=== PATIENT | female | born 1975 | race Caucasian/White ===

== ENCOUNTER 2019-04-05 18:41 | Emergency (ER) | payer MEDICARE, OTHER ==
[2019-04-05] MEDS ORDERED: Ketorolac 60 MG/2 ML SDV IM ONE (19:11)
--- NOTE | 2019-04-05 19:18 | EDM.PDOC ---
ED HPI GENERAL MEDICAL PROBLEM - General Chief Complaint: Respiratory Problem Stated Complaint: COUGHING,VOMITTING Time Seen by Provider: 04/05/19 19:01 Source of Information: Reports: Patient History Limitations: Reports: No Limitations - History of Present Illness INITIAL COMMENTS - FREE TEXT/NARRATIVE: Presents reporting a two-week history of cough. Minor shortness of breath and sore throat but the cough has been intense. She has tried some [id number] cough syrups but none have been efficacious. The last 2-3 days she has been vomiting and today had diarrhea all day. No fever, ear fullness, facial fullness , abdominal pain or dysuria. Does not smoke. Did have a flu shot. - Related Data Allergies Allergy/AdvReac Type Severity Reaction Status Date / Time carbamazepine [From Tegretol] Allergy Rash Verified 04/05/19 18:54 Home Meds: Home Meds Benzonatate [Tessalon Perle] 1 cap PO Q8HR PRN #20 capsule 04/05/19 [Rx] Cariprazine Hydrochloride [Vraylar] 1.5 mg PO 04/05/19 [History] Codeine Phosphate/Guaifenesin [Guaifen-Codeine 100-10 mg/5 ml] 10 ml PO Q6HR PRN #240 liquid 04/05/19 [Rx] Diclofenac Sodium [Voltaren] 75 mg PO BIDMEALS #20 tab.ec 04/05/19 [Rx] Escitalopram [Lexapro] 20 mg PO DAILY 04/05/19 [History] Mecobalamin [B-12] injection INJECT WEEKLY 04/05/19 [History] SUMAtriptan [Imitrex] 50 mg PO ASDIRECTED PRN 04/05/19 [History] Topiramate [Topamax] 100 mg PO DAILY 04/05/19 [History] Past Medical History Other Cardiovascular History: states has a leaky valve Psychiatric History: Reports: OCD - Infectious Disease History Infectious Disease History: Reports: Chicken Pox Social & Family History - Family History Family Medical History: Noncontributory - Tobacco Use Smoking Status *Q: Never Smoker - Caffeine Use Caffeine Use: Reports: None - Recreational Drug Use Recreational Drug Use: No ED ROS GENERAL - Review of Systems Review Of Systems: Comprehensive ROS is negative, except as noted in HPI. ED EXAM, GENERAL - Physical Exam Exam: See Below Exam Limited By: No Limitations General Appearance: Alert, No Apparent Distress Ears: Normal External Exam, Normal TMs Nose: Normal Inspection Throat/Mouth: Normal Inspection, Normal Oropharynx Head: Atraumatic, Normocephalic Neck: Normal Inspection. No: Lymphadenopathy (L), Lymphadenopathy (R) Respiratory/Chest: No Respiratory Distress, Lungs Clear, Normal Breath Sounds Cardiovascular: Normal Peripheral Pulses, Regular Rate, Rhythm, No Murmur GI/Abdominal: Soft, Non-Tender, No Distention Back Exam: Normal Inspection Extremities: Normal Inspection Neurological: Alert, Oriented Psychiatric: Normal Affect, Normal Mood Skin Exam: Warm, Dry, Intact, Normal Color, No Rash Lymphatic: No Adenopathy Course - Vital Signs Last Recorded V/S: Last Vital Signs Temp 35.9 C 04/05/19 18:58 Pulse 87 04/05/19 18:58 Resp 17 04/05/19 18:58 BP 110/55 L 04/05/19 18:58 Pulse Ox 98 04/05/19 18:58 - Orders/Labs/Meds Labs: Laboratory Tests 04/05/19 04/05/19 Range/Units 19:35 19:35 WBC 7.53 (4.0-11.0) K/uL RBC 4.17 L (4.30-5.90) M/uL Hgb 12.5 (12.0-16.0) g/dL Hct 39.6 (36.0-46.0) % MCV 95.0 (80.0-98.0) fL MCH 30.0 (27.0-32.0) pg MCHC 31.6 (31.0-37.0) g/dL RDW Std Deviation 49.1 (28.0-62.0) fl RDW Coeff of Yan 14 (11.0-15.0) % Plt Count 271 (150-400) K/uL MPV 10.50 (7.40-12.00) fL Neut % (Auto) 61.7 (48.0-80.0) % Lymph % (Auto) 26.7 (16.0-40.0) % Nicholas % (Auto) 6.2 (0.0-15.0) % Eos % (Auto) 5.0 (0.0-7.0) % Baso % (Auto) 0.4 (0.0-1.5) % Neut # (Auto) 4.6 (1.4-5.7) K/uL Lymph # (Auto) 2.0 (0.6-2.4) K/uL Nicholas # (Auto) 0.5 (0.0-0.8) K/uL Eos # (Auto) 0.4 (0.0-0.7) K/uL Baso # (Auto) 0.0 (0.0-0.1) K/uL Nucleated RBC % 0.0 /100WBC Nucleated RBCs # 0 K/uL Sodium 140 (136-145) mmol/L Potassium 3.8 (3.5-5.1) mmol/L Chloride 107 (98-107) mmol/L Carbon Dioxide 24.7 (21.0-32.0) mmol/L BUN 10 (7.0-18.0) mg/dL Creatinine 0.7 (0.6-1.0) mg/dL Est Cr Clr Drug Dosing TNP Estimated GFR (MDRD) > 60.0 ml/min Glucose 109 H (74-106) mg/dL Calcium 8.3 L (8.5-10.1) mg/dL Total Bilirubin 0.1 L (0.2-1.0) mg/dL AST 21 (15-37) IU/L ALT 29 (14-63) IU/L Alkaline Phosphatase 55 (46-116) U/L Total Protein 7.2 (6.4-8.2) g/dL Albumin 3.3 L (3.4-5.0) g/dL Globulin 3.9 (2.6-4.0) g/dL Albumin/Globulin Ratio 0.9 (0.9-1.6) Meds: Medications Discontinued Medications Generic Name Dose Route Start Last Admin Trade Name Freq PRN Reason Stop Dose Admin Sodium Chloride 1,000 mls @ 999 mls/hr 04/05/19 19:12 04/05/19 19:42 Normal Saline IV 04/05/19 20:12 999 mls/hr STAT ONE Administration Ketorolac Tromethamine 60 mg 04/05/19 19:11 Toradol IM 04/05/19 19:12 ONETIME ONE Ketorolac Tromethamine 30 mg 04/05/19 19:12 04/05/19 19:41 Toradol IVPUSH 04/05/19 19:13 30 mg ONETIME ONE Administration Departure - Departure Time of Disposition: 20:32 Disposition: Home, Self-Care 01 Condition: Good Clinical Impression: Bronchitis - Discharge Information Prescriptions: Codeine Phosphate/Guaifenesin [Guaifen-Codeine 100-10 mg/5 ml] 10 ml PO Q6HR PRN #240 liquid PRN Reason: Cough Benzonatate [Tessalon Perle] 1 cap PO Q8HR PRN #20 capsule PRN Reason: Cough Diclofenac Sodium [Voltaren] 75 mg PO BIDMEALS #20 tab.ec Referrals: Brian Lu MD [Primary Care Provider] - Forms: ED Department Discharge Additional Instructions: The following information is given to patients seen in the emergency department who are being discharged to home. This information is to outline your options for follow-up care. We provide all patients seen in our emergency department with a follow-up referral. The need for follow-up, as well as the timing and circumstances, are variable depending upon the specifics of your emergency department visit. If you don't have a primary care physician on staff, we will provide you with a referral. We always advise you to contact your personal physician following an emergency department visit to inform them of the circumstance of the visit and for follow-up with them and/or the need for any referrals to a consulting specialist. The emergency department will also refer you to a specialist when appropriate. This referral assures that you have the opportunity for follow-up care with a specialist. All of these measure are taken in an effort to provide you with optimal care, which includes your follow-up. Under all circumstances we always encourage you to contact your private physician who remains a resource for coordinating your care. When calling for follow-up care, please make the office aware that this follow-up is from your recent emergency room visit. If for any reason you are refused follow-up, please contact the [facility] Emergency Department at and asked to speak to the emergency department charge nurse. 1. Cough syrup every 6 hours as needed. No driving or operating machinery 2. Tessalon pearles every 8 hours 1-2 as needed for cough 3. Diclofenac twice daily next seven days. 4. Follow up in primary care. Sepsis Event Note - Evaluation Sepsis Screening Result: No Definite Risk - Focused Exam Vital Signs: Vital Signs Temp Pulse Resp BP Pulse Ox 04/05/19 18:58 35.9 C 87 17 110/55 L 98 Date Exam was Performed: 04/05/19 Time Exam was Performed: 20:32
[2019-04-05] MEDS: Ketorolac 30 MG/ML SDV IVPUSH ONE (19:41)
[2019-04-05] MEDS: Sodium Chloride 0.9% 1,000 ML IV ONE (19:42)
[2019-04-05 20:13] LABS: BLOOD UREA NITROGEN,BUN 10 mg/dL (7.0-18.0); CARBON DIOXIDE,CO2 24.7 mmol/L (21.0-32.0); CHLORIDE,CL 107 mmol/L (98-107); GLUCOSE RANDOM 109 mg/dL (74-106); POTASSIUM,K 3.8 mmol/L (3.5-5.1); SODIUM,NA 140 mmol/L (136-145)
== END 2019-04-05 21:01 | disposition home or self-care (01) ==
LOC: MW.ED 18:41
DX: J40 Bronchitis, not specified as acute or chronic (principal); Z88.8 Allergy status to other drugs, medicaments and biological substances; Z79.899 Other long term (current) drug therapy
CPT/HCPCS: 36415; 80053; 85025; 96361; 96374; 99284; J1885; J7030; 99283

== ENCOUNTER 2019-04-14 15:14 | Emergency (ER) | payer MEDICARE, OTHER ==
--- NOTE | 2019-04-14 16:37 | CR ---
Indication: Cough. Technique: PA and lateral views the chest. Comparison: None Findings: The heart is normal in size. The lungs are clear. No infiltrate, pleural effusion, or pneumothorax is identified. Impression: No acute cardiopulmonary process. Dictated by Gi Hsu MD @ Apr 14 2019 4:35PM Signed by Dr. Gi Hsu @ Apr 14 2019 4:35PM
[2019-04-14 17:13] LABS: BLOOD UREA NITROGEN,BUN 18 mg/dL (7.0-18.0); CARBON DIOXIDE,CO2 24.5 mmol/L (21.0-32.0); CHLORIDE,CL 106 mmol/L (98-107); GLUCOSE RANDOM 99 mg/dL (74-106); POTASSIUM,K 4.3 mmol/L (3.5-5.1); SODIUM,NA 139 mmol/L (136-145)
[2019-04-14] MEDS ORDERED: Aspirin 81 MG Tab.Chew PO ONE (17:32)
[2019-04-14] MEDS ORDERED: Sodium Chloride 0.9% 10 ML Syringe FLUSH PRN (18:07)
[2019-04-14] MEDS ORDERED: Sodium Chloride 0.9% 2.5 ML Syringe FLUSH PRN (18:07)
--- NOTE | 2019-04-14 18:21 | EDM.PDOC ---
ED HPI GENERAL MEDICAL PROBLEM - General Chief Complaint: Chest Pain Stated Complaint: CHEST DISCOMFORT Time Seen by Provider: 04/14/19 17:20 Source of Information: Reports: Patient, Family - History of Present Illness INITIAL COMMENTS - FREE TEXT/NARRATIVE: Patient is 43-year-old female with past medical history of morbid obesity and chest pain of unknown etiology. Patient reports having chest pain which is chronic but acutely worsened today. Patient states feels like a pressure on her chest. Patient states it worse with deep breaths. Patient reports recent visit for bronchitis. However the symptoms seems to be new and different bronchitis symptoms. Patient reports associated shortness of breath but denies lightheadedness, nausea, vomiting, diaphoresis. Patient had recent cardiac work -up in [place] where she is from with cardiac catheterization but did not have any findings or any intervention done at that time. Addition, she also had stress test which were negative In addition to that documented in the HPI above, the additional ROS was obtained : Constitutional: Denies fevers or chills Eyes: Denies vision changes ENMT: Denies sore throat CV: Per HPI Resp: Per HPI GI: Denies vomiting or diarrhea : Denies painful urination MSK: Denies recent trauma Skin: Denies new rashes Neuro: Denies new numbness or tingling or weakness Endocrine: Denies unexpected weight loss Heme: Denies bleeding disorders I have reviewed the triage vital signs Const: Well nourished, well developed, appears stated age Eyes: PERRL, no conjunctival injection HENT: NCAT, Neck supple without meningismus CV: RRR, Warm, well-perfused extremities RESP: CTAB, Unlabored respiratory effort GI: soft, non-tender, non-distended, no masses MSK: No gross deformities appreciated Skin: Warm, dry. No rashes Neuro: Alert, purchase price analyst II-XII grossly intact. Sensation and motor function of extremities grossly intact. Psych: Appropriate mood and affect chest Pain Score (Numeric/FACES): 10 - Related Data Allergies Allergy/AdvReac Type Severity Reaction Status Date / Time carbamazepine [From Tegretol] Allergy Rash Verified 04/14/19 15:22 Home Meds: Home Meds Benzonatate [Tessalon Perle] 1 cap PO Q8HR PRN #20 capsule 04/05/19 [Rx] Cariprazine Hydrochloride [Vraylar] 1.5 mg PO ASDIRECTED 04/05/19 [History] Codeine Phosphate/Guaifenesin [Guaifen-Codeine 100-10 mg/5 ml] 10 ml PO Q6HR PRN #240 liquid 04/05/19 [Rx] Diclofenac Sodium [Voltaren] 75 mg PO BIDMEALS #20 tab.ec 04/05/19 [Rx] Escitalopram [Lexapro] 20 mg PO DAILY 04/05/19 [History] Mecobalamin [B-12] 1,000 injection INJECT WEEKLY 04/05/19 [History] SUMAtriptan [Imitrex] 50 mg PO ASDIRECTED PRN 04/05/19 [History] Topiramate [Topamax] 100 mg PO DAILY 04/05/19 [History] Past Medical History Other Cardiovascular History: states has a leaky valve Psychiatric History: Reports: OCD - Infectious Disease History Infectious Disease History: Reports: None Social & Family History - Family History Family Medical History: Noncontributory - Tobacco Use Smoking Status *Q: Never Smoker Second Hand Smoke Exposure: No - Caffeine Use Caffeine Use: Reports: None - Recreational Drug Use Recreational Drug Use: No ED ROS GENERAL - Review of Systems Review Of Systems: See Below ED EXAM, GENERAL - Physical Exam Exam: See Below Course - Vital Signs Last Recorded V/S: Last Vital Signs Temp 36.3 C 04/14/19 15:23 Pulse 78 04/14/19 18:46 Resp 18 04/14/19 18:46 BP 117/60 04/14/19 18:46 Pulse Ox 97 04/14/19 18:46 - Orders/Labs/Meds Orders: Active Orders 24 hr Category Date Time Status EKG Documentation Completion [RC] STAT Care 04/14/19 15:59 Active HCG QUALITATIVE,URINE [URCHEM] Stat Lab 04/14/19 16:05 Ordered UA RFX MIHAI AND CULT IF INDIC [URIN] Stat Lab 04/14/19 16:05 Ordered Sodium Chloride 0.9% [Saline Flush] Med 04/14/19 18:07 Active 10 ml FLUSH ASDIRECTED PRN Sodium Chloride 0.9% [Saline Flush] Med 04/14/19 18:07 Active 2.5 ml FLUSH ASDIRECTED PRN Saline Lock Insert [OM.PC] Stat Oth 04/14/19 18:07 Ordered Medication Orders Sodium Chloride (Saline Flush) 10 ml FLUSH ASDIRECTED PRN PRN Reason: Keep Vein Open Sodium Chloride (Saline Flush) 2.5 ml FLUSH ASDIRECTED PRN PRN Reason: Keep Vein Open Labs: Laboratory Tests 04/14/19 04/14/19 04/14/19 Range/Units 16:37 16:37 16:37 WBC 10.71 (4.0-11.0) K/uL RBC 4.20 L (4.30-5.90) M/uL Hgb 12.7 (12.0-16.0) g/dL Hct 39.5 (36.0-46.0) % MCV 94.0 (80.0-98.0) fL MCH 30.2 (27.0-32.0) pg MCHC 32.2 (31.0-37.0) g/dL RDW Std Deviation 48.2 (28.0-62.0) fl RDW Coeff of Yan 14 (11.0-15.0) % Plt Count 282 (150-400) K/uL MPV 10.70 (7.40-12.00) fL Neut % (Auto) 68.0 (48.0-80.0) % Lymph % (Auto) 21.5 (16.0-40.0) % Cheshire % (Auto) 6.2 (0.0-15.0) % Eos % (Auto) 3.9 (0.0-7.0) % Baso % (Auto) 0.4 (0.0-1.5) % Neut # (Auto) 7.3 H (1.4-5.7) K/uL Lymph # (Auto) 2.3 (0.6-2.4) K/uL [place] # (Auto) 0.7 (0.0-0.8) K/uL Eos # (Auto) 0.4 (0.0-0.7) K/uL Baso # (Auto) 0.0 (0.0-0.1) K/uL Nucleated RBC % 0.0 /100WBC Nucleated RBCs # 0 K/uL D-Dimer, Quantitative 0.52 H (0.0-0.50) mg/L FEU Sodium 139 (136-145) mmol/L Potassium 4.3 (3.5-5.1) mmol/L Chloride 106 (98-107) mmol/L Carbon Dioxide 24.5 (21.0-32.0) mmol/L BUN 18 (7.0-18.0) mg/dL Creatinine 0.6 (0.6-1.0) mg/dL Est Cr Clr Drug Dosing 95.62 mL/min Estimated GFR (MDRD) > 60.0 ml/min Glucose 99 (74-106) mg/dL Calcium 8.6 (8.5-10.1) mg/dL Total Bilirubin 0.1 L (0.2-1.0) mg/dL AST 18 (15-37) IU/L ALT 27 (14-63) IU/L Alkaline Phosphatase 55 (46-116) U/L Troponin I < 0.050 (0.000-0.056) ng/mL Total Protein 7.0 (6.4-8.2) g/dL Albumin 3.3 L (3.4-5.0) g/dL Globulin 3.7 (2.6-4.0) g/dL Albumin/Globulin Ratio 0.9 (0.9-1.6) Meds: Medications Generic Name Dose Route Start Last Admin Trade Name Freq PRN Reason Stop Dose Admin Sodium Chloride 10 ml 04/14/19 18:07 Saline Flush FLUSH ASDIRECTED PRN Keep Vein Open Sodium Chloride 2.5 ml 04/14/19 18:07 Saline Flush FLUSH ASDIRECTED PRN Keep Vein Open Discontinued Medications Generic Name Dose Route Start Last Admin Trade Name Freq PRN Reason Stop Dose Admin Aspirin 324 mg 04/14/19 17:32 04/14/19 17:41 Aspirin PO 04/14/19 17:33 324 mg ONETIME ONE Administration Iopamidol 60 ml 04/14/19 18:41 04/14/19 18:41 Isovue Multipack-370 (76%) IVPUSH 04/14/19 18:42 60 ml ONETIME STA Administration Departure - Departure Time of Disposition: 19:21 Disposition: Home, Self-Care 01 Condition: Good Clinical Impression: Atypical chest pain Instructions: Nonspecific Chest Pain, [id number] Referrals: PCP,Not In Area [Primary Care Provider] - Forms: ED Department Discharge Care Plan Goals: The following information is given to patients seen in the emergency department who are being discharged to home. This information is to outline your options for follow-up care. We provide all patients seen in our emergency department with a follow-up referral. The need for follow-up, as well as the timing and circumstances, are variable depending upon the specifics of your emergency department visit. If you don't have a primary care physician on staff, we will provide you with a referral. We always advise you to contact your personal physician following an emergency department visit to inform them of the circumstance of the visit and for follow-up with them and/or the need for any referrals to a consulting specialist. The emergency department will also refer you to a specialist when appropriate. This referral assures that you have the opportunity for follow-up care with a specialist. All of these measure are taken in an effort to provide you with optimal care, which includes your follow-up. Under all circumstances we always encourage you to contact your private physician who remains a resource for coordinating your care. When calling for follow-up care, please make the office aware that this follow-up is from your recent emergency room visit. If for any reason you are refused follow-up, please contact the [facility] Emergency Department at and asked to speak to the emergency department charge nurse. [facility] [address] [place] [id number] [place] [address] Please establish care with a local PCP or followup with your PCP Sepsis Event Note - Evaluation Sepsis Screening Result: No Definite Risk - Focused Exam Vital Signs: Vital Signs Temp Pulse Resp BP Pulse Ox 04/14/19 18:46 78 18 117/60 97 04/14/19 15:23 36.3 C 78 16 124/70 96 Date Exam was Performed: 04/14/19 Time Exam was Performed: 19:21 - My Orders Last 24 Hours: My Active Orders 04/14/19 15:59 EKG Documentation Completion [RC] STAT 04/14/19 16:05 HCG QUALITATIVE,URINE [URCHEM] Stat UA RFX MIHAI AND CULT IF INDIC [URIN] Stat 04/14/19 18:07 Sodium Chloride 0.9% [Saline Flush] 10 ml FLUSH ASDIRECTED PRN Sodium Chloride 0.9% [Saline Flush] 2.5 ml FLUSH ASDIRECTED PRN Saline Lock Insert [OM.PC] Stat - Assessment/Plan Last 24 Hours: My Active Orders 04/14/19 15:59 EKG Documentation Completion [RC] STAT 04/14/19 16:05 HCG QUALITATIVE,URINE [URCHEM] Stat UA RFX MIHAI AND CULT IF INDIC [URIN] Stat 04/14/19 18:07 Sodium Chloride 0.9% [Saline Flush] 10 ml FLUSH ASDIRECTED PRN Sodium Chloride 0.9% [Saline Flush] 2.5 ml FLUSH ASDIRECTED PRN Saline Lock Insert [OM.PC] Stat Assessment:: Patient is a 43-year-old female with chest pain. Patient EKG does not indicate any cardiac ischemia. Patient's vital signs within normal limits. Unclear etiology of chest pain. Will check troponin which initially is negative. Patient has elevated d-dimer so pulmonary embolism cannot be fully excluded. CTA performed to evaluate. CTA negative for pulmonary embolism. Patient pain improved. Patient has heart score of 2. Pt was discharged home/self-care. Pt was discharged with the following prescriptions: Aspirin. Pt was provided written discharge instructions. Additional verbal instructions were given and discussed with Pt including, but not limited to, pain or any other concerns. Pt was asked to return to the ED immediately for any new or concerning or if they worsen. Pt was in agreement, endorsed understanding, and questions were answered. Pt instructed to follow-up with _family medicine within the next 2 to 3 days. Days.
[2019-04-14] MEDS ORDERED: Iopamidol 755 MG/ML 500 ML Multipack Bottle IVPUSH STA (18:41)
--- NOTE | 2019-04-14 18:57 | CT ---
INDICATION: Chest pain for a few days. Elevated D-dimer. COMPARISON: Chest radiograph from today. TECHNIQUE: CT examination of the chest was performed with the uneventful intravenous administration of 60 cc of Isovue 370 while 1 mm thick axial sections were obtained through the pulmonary arteries. Please note that all CT scans at this facility use dose modulation, iterative reconstruction, and/or weight-based dosing when appropriate to reduce radiation dose to as low as reasonably achievable. FINDINGS: : There is no sign of pulmonary embolism, with normal enhancement and branching of the pulmonary arteries. The lungs are clear with no sign of significant infiltrate or mass. There is no sign of mediastinal or hilar mass or adenopathy. The heart mildly enlarged with four-chamber dilatation. There is normal appearance of the aorta and other ascending great vessels. There is no sign of supraclavicular or axillary mass or adenopathy. The visualized superior liver and spleen are normal in appearance. The osseous structures are normal in appearance for the patient`s age. IMPRESSION: No sign of pulmonary embolism. Mild cardiomegaly. Otherwise no active disease seen in the chest. Please note that all CT scans at this facility use dose modulation, iterative reconstruction, and/or weight-based dosing when appropriate to reduce radiation dose to as low as reasonably achievable. Dictated by Vineet Robles MD @ Apr 14 2019 6:50PM Signed by Dr. Vineet Robles @ Apr 14 2019 6:55PM
== END 2019-04-14 19:35 | disposition home or self-care (01) ==
LOC: MW.ED 15:14
DX: R07.89 Other chest pain (principal); Z79.899 Other long term (current) drug therapy; Z88.8 Allergy status to other drugs, medicaments and biological substances
CPT/HCPCS: 36415; 71046; 71046-26; 71275; 71275-26; 80053; 84484; 85025; 85379; 93005; 99285-25; A9270-GY; Q9967

== ENCOUNTER 2019-06-19 20:15 | Emergency (ER) | payer MEDICARE, OTHER ==
--- NOTE | 2019-06-19 20:26 | EDM.PDOC ---
<Lizandro Burgess - Last Filed: 06/19/19 22:10> ED HPI GENERAL MEDICAL PROBLEM - General Chief Complaint: Gastrointestinal Problem Stated Complaint: BACK PAIN, VOMITING Time Seen by Provider: 06/19/19 20:25 Source of Information: Reports: Patient History Limitations: Reports: No Limitations - History of Present Illness INITIAL COMMENTS - FREE TEXT/NARRATIVE: HISTORY AND PHYSICAL: History of present illness: Patient is a 43-year-old female presents to the ED with complaint of abdominal pain. Patient states that 6 days ago she developed vomiting and diarrhea. She states shortly after this she started having abdominal pain and cramping. She went to ED in [facility] 4 days ago and states she was about to have a CT scan but the scanner broke. She states the vomiting has resolved but she is having diarrhea every time after she eats. She denies fever or chills. Review of systems: As per history of present illness and below otherwise all systems reviewed and negative. Past medical history: As per history of present illness and as reviewed below otherwise noncontributory. Surgical history: As per history of present illness and as reviewed below otherwise noncontributory. Social history: No reported history of drug or alcohol abuse. Family history: As per history of present illness and as reviewed below otherwise noncontributory. Physical exam: General: Patient sitting comfortably in no acute distress and nontoxic appearing HEENT: Atraumatic, normocephalic, pupils reactive, negative for conjunctival pallor or scleral icterus, mucous membranes moist, throat clear, neck supple, nontender, trachea midline. No meningeal signs. Lungs: Clear to auscultation, breath sounds equal bilaterally, chest nontender. Heart: S1S2, regular, negative for clicks, rubs, or overt murmur. Abdomen: Generalized abdominal pain, no point tenderness. Soft, nondistended. Negative for masses or hepatosplenomegaly. Negative for costovertebral tenderness. No rigidity, rebound, guarding. Pelvis: Stable nontender. Genitourinary: Deferred. Rectal: Deferred. Extremities: Atraumatic, negative for cords or calf pain. Neurovascular unremarkable. Neuro: Awake, alert, oriented. Cranial nerves II through XII unremarkable. Cerebellum unremarkable. Motor and sensory unremarkable throughout. Exam nonfocal. Notes: Diagnostics: CBC, CMP, lipase, UA, CT abdomen/pelvis Therapeutics: 1L NS IV 30mg Toradol IV Prescriptions: Impression: Abdominal pain, diarrhea Plan: Follow up with primary care provider Return to ED as needed as discussed Definitive disposition and diagnosis as appropriate pending reevaluation and review of above. back Pain Score (Numeric/FACES): 8 - Related Data Allergies Allergy/AdvReac Type Severity Reaction Status Date / Time carbamazepine [From Tegretol] Allergy Rash Verified 06/19/19 20:24 Home Meds: Home Meds Cariprazine Hydrochloride [Vraylar] 3 mg PO ASDIRECTED 04/05/19 [History] Escitalopram [Lexapro] 20 mg PO DAILY 04/05/19 [History] Mecobalamin [B-12] 1,000 injection INJECT WEEKLY 04/05/19 [History] SUMAtriptan [Imitrex] 50 mg PO ASDIRECTED PRN 04/05/19 [History] Topiramate [Topamax] 100 mg PO DAILY 04/05/19 [History] Fludrocortisone [Fludrocortisone Acetate] 0.1 mg PO DAILY 06/19/19 [History] Past Medical History Other Cardiovascular History: states has a leaky valve Psychiatric History: Reports: OCD - Infectious Disease History Infectious Disease History: Reports: None Social & Family History - Family History Family Medical History: Noncontributory - Caffeine Use Caffeine Use: Reports: None ED ROS GENERAL - Review of Systems Review Of Systems: Comprehensive ROS is negative, except as noted in HPI. ED EXAM, GI/ABD - Physical Exam Exam: See Below (see dictation) Course - Vital Signs Last Recorded V/S: Last Vital Signs Temp 35.9 C L 06/19/19 20:20 Pulse 72 06/19/19 21:25 Resp 18 06/19/19 21:25 BP 121/69 06/19/19 21:25 Pulse Ox 100 06/19/19 21:25 - Orders/Labs/Meds Orders: Active Orders 24 hr Category Date Time Status Sodium Chloride 0.9% [Saline Flush] Med 06/19/19 20:43 Active 10 ml FLUSH ASDIRECTED PRN Sodium Chloride 0.9% [Saline Flush] Med 06/19/19 20:43 Active 2.5 ml FLUSH ASDIRECTED PRN Saline Lock Insert [OM.PC] Stat Oth 06/19/19 20:43 Ordered Medication Orders Sodium Chloride (Saline Flush) 10 ml FLUSH ASDIRECTED PRN PRN Reason: Keep Vein Open Last Admin: 06/19/19 21:02 Dose: 10 ml Sodium Chloride (Saline Flush) 2.5 ml FLUSH ASDIRECTED PRN PRN Reason: Keep Vein Open Last Admin: 06/19/19 21:02 Dose: 2.5 ml Labs: Laboratory Tests 06/19/19 06/19/19 06/19/19 Range/Units 20:32 20:32 20:45 WBC 8.88 (4.0-11.0) K/uL RBC 3.92 L (4.30-5.90) M/uL Hgb 11.6 L (12.0-16.0) g/dL Hct 36.1 (36.0-46.0) % MCV 92.1 (80.0-98.0) fL MCH 29.6 (27.0-32.0) pg MCHC 32.1 (31.0-37.0) g/dL RDW Std Deviation 48.2 (28.0-62.0) fl RDW Coeff of Yan 14 (11.0-15.0) % Plt Count 245 (150-400) K/uL MPV 10.40 (7.40-12.00) fL Neut % (Auto) 60.7 (48.0-80.0) % Lymph % (Auto) 28.7 (16.0-40.0) % [place] % (Auto) 6.0 (0.0-15.0) % Eos % (Auto) 4.3 (0.0-7.0) % Baso % (Auto) 0.3 (0.0-1.5) % Neut # (Auto) 5.4 (1.4-5.7) K/uL Lymph # (Auto) 2.6 H (0.6-2.4) K/uL [place] # (Auto) 0.5 (0.0-0.8) K/uL Eos # (Auto) 0.4 (0.0-0.7) K/uL Baso # (Auto) 0.0 (0.0-0.1) K/uL Nucleated RBC % 0.0 /100WBC Nucleated RBCs # 0 K/uL Sodium (136-145) mmol/L Potassium (3.5-5.1) mmol/L Chloride (98-107) mmol/L Carbon Dioxide (21.0-32.0) mmol/L BUN (7.0-18.0) mg/dL Creatinine (0.6-1.0) mg/dL Est Cr Clr Drug Dosing mL/min Estimated GFR (MDRD) ml/min Glucose (74-106) mg/dL Calcium (8.5-10.1) mg/dL Total Bilirubin (0.2-1.0) mg/dL AST (15-37) IU/L ALT (14-63) IU/L Alkaline Phosphatase (46-116) U/L Total Protein (6.4-8.2) g/dL Albumin (3.4-5.0) g/dL Globulin (2.6-4.0) g/dL Albumin/Globulin Ratio (0.9-1.6) Lipase (73-393) U/L Urine Color YELLOW Urine Appearance SLT CLOUDY Urine pH 5.5 (5.0-8.0) Ur Specific [place] >= 1.030 (1.001-1.035) Urine Protein NEGATIVE (NEGATIVE) mg/dL Urine Glucose (UA) NEGATIVE (NEGATIVE) mg/dL Urine Ketones NEGATIVE (NEGATIVE) mg/dL Urine Occult Blood SMALL H (NEGATIVE) Urine Nitrite NEGATIVE (NEGATIVE) Urine Bilirubin NEGATIVE (NEGATIVE) Urine Urobilinogen 0.2 (<2.0) EU/dL Ur Leukocyte Esterase NEGATIVE (NEGATIVE) Urine RBC 2-4 (0-2/HPF) Urine WBC 0-1 (0-5/HPF) Ur Epithelial Cells MODERATE (NONE-FEW) Urine Bacteria RARE (NEGATIVE) Urine Mucus LIGHT (NONE-MOD) Urine HCG, Qual NEGATIVE (NEGATIVE) 06/19/19 Range/Units 20:45 WBC (4.0-11.0) K/uL RBC (4.30-5.90) M/uL Hgb (12.0-16.0) g/dL Hct (36.0-46.0) % MCV (80.0-98.0) fL MCH (27.0-32.0) pg MCHC (31.0-37.0) g/dL RDW Std Deviation (28.0-62.0) fl RDW Coeff of Yan (11.0-15.0) % Plt Count (150-400) K/uL MPV (7.40-12.00) fL Neut % (Auto) (48.0-80.0) % Lymph % (Auto) (16.0-40.0) % [place] % (Auto) (0.0-15.0) % Eos % (Auto) (0.0-7.0) % Baso % (Auto) (0.0-1.5) % Neut # (Auto) (1.4-5.7) K/uL Lymph # (Auto) (0.6-2.4) K/uL [place] # (Auto) (0.0-0.8) K/uL Eos # (Auto) (0.0-0.7) K/uL Baso # (Auto) (0.0-0.1) K/uL Nucleated RBC % /100WBC Nucleated RBCs # K/uL Sodium 137 (136-145) mmol/L Potassium 3.5 (3.5-5.1) mmol/L Chloride 104 (98-107) mmol/L Carbon Dioxide 25.0 (21.0-32.0) mmol/L BUN 7 (7.0-18.0) mg/dL Creatinine 0.7 (0.6-1.0) mg/dL Est Cr Clr Drug Dosing 81.96 mL/min Estimated GFR (MDRD) > 60.0 ml/min Glucose 114 H (74-106) mg/dL Calcium 8.7 (8.5-10.1) mg/dL Total Bilirubin 0.2 (0.2-1.0) mg/dL AST 14 L (15-37) IU/L ALT 18 (14-63) IU/L Alkaline Phosphatase 51 (46-116) U/L Total Protein 6.4 (6.4-8.2) g/dL Albumin 3.0 L (3.4-5.0) g/dL Globulin 3.4 (2.6-4.0) g/dL Albumin/Globulin Ratio 0.9 (0.9-1.6) Lipase 76 (73-393) U/L Urine Color Urine Appearance Urine pH (5.0-8.0) Ur Specific [place] (1.001-1.035) Urine Protein (NEGATIVE) mg/dL Urine Glucose (UA) (NEGATIVE) mg/dL Urine Ketones (NEGATIVE) mg/dL Urine Occult Blood (NEGATIVE) Urine Nitrite (NEGATIVE) Urine Bilirubin (NEGATIVE) Urine Urobilinogen (<2.0) EU/dL Ur Leukocyte Esterase (NEGATIVE) Urine RBC (0-2/HPF) Urine WBC (0-5/HPF) Ur Epithelial Cells (NONE-FEW) Urine Bacteria (NEGATIVE) Urine Mucus (NONE-MOD) Urine HCG, Qual (NEGATIVE) Meds: Medications Generic Name Dose Route Start Last Admin Trade Name Freq PRN Reason Stop Dose Admin Sodium Chloride 10 ml 06/19/19 20:43 06/19/19 21:02 Saline Flush FLUSH 10 ml ASDIRECTED PRN Administration Keep Vein Open Sodium Chloride 2.5 ml 06/19/19 20:43 06/19/19 21:02 Saline Flush FLUSH 2.5 ml ASDIRECTED PRN Administration Keep Vein Open Discontinued Medications Generic Name Dose Route Start Last Admin Trade Name Freq PRN Reason Stop Dose Admin Al Hydroxide/Mg Hydroxide 30 ml 06/19/19 22:53 06/19/19 23:01 Mag-Al Plus PO 06/19/19 22:54 30 ml ONETIME ONE Administration Famotidine 20 mg 06/19/19 22:53 06/19/19 23:01 Pepcid IVPUSH 06/19/19 22:54 20 mg ONETIME ONE Administration Sodium Chloride 1,000 mls @ 999 mls/hr 06/19/19 20:43 06/19/19 21:01 Normal Saline IV 06/19/19 21:43 999 mls/hr STAT ONE Administration Iopamidol 100 ml 06/19/19 21:39 06/19/19 21:46 Isovue Multipack-370 (76%) IVPUSH 06/19/19 21:40 100 ml ONETIME STA Administration Ketorolac Tromethamine 30 mg 06/19/19 20:54 06/19/19 21:01 Toradol IVPUSH 06/19/19 20:55 30 mg ONETIME ONE Administration Departure - Departure Disposition: Home, Self-Care 01 Condition: Good Clinical Impression: Abdominal pain - Discharge Information Instructions: Abdominal Pain, Adult, [id number] Referrals: PCP,Not In Area [Primary Care Provider] - Forms: ED Department Discharge Additional Instructions: The following information is given to patients seen in the emergency department who are being discharged to home. This information is to outline your options for follow-up care. We provide all patients seen in our emergency department with a follow-up referral. The need for follow-up, as well as the timing and circumstances, are variable depending upon the specifics of your emergency department visit. If you don't have a primary care physician on staff, we will provide you with a referral. We always advise you to contact your personal physician following an emergency department visit to inform them of the circumstance of the visit and for follow-up with them and/or the need for any referrals to a consulting specialist. The emergency department will also refer you to a specialist when appropriate. This referral assures that you have the opportunity for follow-up care with a specialist. All of these measure are taken in an effort to provide you with optimal care, which includes your follow-up. Under all circumstances we always encourage you to contact your private physician who remains a resource for coordinating your care. When calling for follow-up care, please make the office aware that this follow-up is from your recent emergency room visit. If for any reason you are refused follow-up, please contact the [facility] Department at and asked to speak to the emergency department charge nurse. [facility] [address] [place], [place] [id number] [place] [address] Follow up with primary care provider Return to ED as needed as discussed Sepsis Event Note - Focused Exam Vital Signs: Vital Signs Temp Pulse Resp BP Pulse Ox 06/19/19 21:25 72 18 121/69 100 06/19/19 20:20 35.9 C L 85 18 123/83 98 Date Exam was Performed: 06/19/19 Time Exam was Performed: 22:10 <Vikas Tinoco - Last Filed: 06/19/19 23:29> Departure - Departure Time of Disposition: 23:28 Sepsis Event Note - Focused Exam Date Exam was Performed: 06/19/19 Time Exam was Performed: 23:28 - Assessment/Plan Assessment:: Patient is a 43-year-old female complains of abdominal pain. The patient is abdominal pain is generalized and not localized. Patient feels better after administration of GI cocktail. Nothing acute is seen on labs or CT scan. At this point, the patient is tolerating p.o. and will be discharged home with good return precautions. All questions addressed and answered. Patient agrees with plan.
[2019-06-19] MEDS ORDERED: Sodium Chloride 0.9% 10 ML Syringe FLUSH PRN (20:43)
[2019-06-19] MEDS ORDERED: Sodium Chloride 0.9% 1,000 ML IV ONE (20:43)
[2019-06-19] MEDS ORDERED: Ketorolac 60 MG/2 ML SDV IM ONE (20:43)
[2019-06-19] MEDS ORDERED: Sodium Chloride 0.9% 2.5 ML Syringe FLUSH PRN (20:43)
[2019-06-19] MEDS ORDERED: Ketorolac 30 MG/ML SDV IVPUSH ONE (20:54)
[2019-06-19 21:16] LABS: BLOOD UREA NITROGEN,BUN 7 mg/dL (7.0-18.0); CHLORIDE,CL 104 mmol/L (98-107); GLUCOSE RANDOM 114 mg/dL (74-106); LIPASE 76 U/L (73-393); POTASSIUM,K 3.5 mmol/L (3.5-5.1); SODIUM,NA 137 mmol/L (136-145)
[2019-06-19] MEDS ORDERED: Iopamidol 755 MG/ML 200 ML Multipack Bottle IVPUSH STA (21:39)
--- NOTE | 2019-06-19 22:24 | CT ---
INDICATION: Abdominal pain. COMPARISON: None available TECHNIQUE: CT examination of the abdomen and pelvis was performed with the uneventful intravenous administration of 100 cc of Isovue 370 while 3 mm thick axial sections were obtained from the lung bases through the pubic symphysis. Oral contrast was not administered. Please note that all CT scans at this facility use dose modulation, iterative reconstruction, and/or weight-based dosing when appropriate to reduce radiation dose to as low as reasonably achievable. FINDINGS: In the abdomen, the liver is low in density, representing fatty infiltration. There is no sign of mass. The spleen, pancreas and adrenals are normal in appearance. The kidneys are normal in appearance. Clips are seen in the gall bladder fossa from cholecystectomy. There is no sign of biliary ductal dilatation. The abdominal aorta is normal in caliber with no sign of dilatation. There is no sign of retroperitoneal mass or adenopathy. The stomach, loops of small bowel, and colon in the abdomen are normal in appearance. In the pelvis, the retrocecal appendix is normal in appearance with no sign of inflammatory process. The loops of small bowel and colon in the pelvis are normal in appearance. The uterus and adnexal regions are normal in appearance. The urinary bladder is normal in appearance. There is no sign of pelvic or inguinal mass or adenopathy. The lung bases are clear. The osseous structures are normal in appearance for the patient`s age. IMPRESSION: Nothing seen to explain the patient`s abdominal pain. CT of the abdomen shows fatty infiltration of the otherwise normal appearing liver. Status post cholecystectomy with no sign of biliary ductal dilatation. Normal CT of the pelvis with contrast. Please note that all CT scans at this facility use dose modulation, iterative reconstruction, and/or weight-based dosing when appropriate to reduce radiation dose to as low as reasonably achievable. Dictated by Vineet Robles MD @ Jun 19 2019 10:18PM Signed by Dr. Vineet Robles @ Jun 19 2019 10:23PM
[2019-06-19] MEDS ORDERED: Famotidine 20 MG/2 ML SDV IVPUSH ONE (22:53)
[2019-06-19] MEDS ORDERED: Aluminum Hydroxide/Magnesium Hydroxide/Simethicone Susp 30 ML Cup PO ONE (22:53)
== END 2019-06-19 23:35 | disposition home or self-care (01) ==
LOC: MW.ED 20:15
DX: R10.84 Generalized abdominal pain (principal); R19.7 Diarrhea, unspecified; Z88.8 Allergy status to other drugs, medicaments and biological substances; Z79.899 Other long term (current) drug therapy
CPT/HCPCS: 36415; 74177; 80053; 81001; 81025; 83690; 85025; 96361; 96374; 96375; 99284; A9270; J1885; J3490; J7030; Q9967

== ENCOUNTER 2019-06-26 15:28 | Emergency (ER) | payer MEDICARE ==
[2019-06-26] MEDS ORDERED: Ondansetron 4 MG Tab.DIS PO ONE (15:52)
--- NOTE | 2019-06-26 16:14 | EDM.PDOC ---
ED HPI GENERAL MEDICAL PROBLEM - General Chief Complaint: General Stated Complaint: STOMACH PAINS/VOMITTING Time Seen by Provider: 06/26/19 15:35 Source of Information: Reports: Patient History Limitations: Reports: No Limitations - History of Present Illness INITIAL COMMENTS - FREE TEXT/NARRATIVE: Pt with no pmh presents with nausea, vomiting and diarrhea associated with body aches and generalized abdominal pain for 4 days. no fevers reported no dysuria. Generalized Pain Score (Numeric/FACES): 8 - Related Data Allergies Allergy/AdvReac Type Severity Reaction Status Date / Time carbamazepine [From Tegretol] Allergy Rash Verified 06/26/19 15:35 Home Meds: Home Meds Cariprazine Hydrochloride [Vraylar] 3 mg PO ASDIRECTED 04/05/19 [History] Escitalopram [Lexapro] 20 mg PO DAILY 04/05/19 [History] Mecobalamin [B-12] 1,000 injection INJECT WEEKLY 04/05/19 [History] SUMAtriptan [Imitrex] 50 mg PO ASDIRECTED PRN 04/05/19 [History] Fludrocortisone [Fludrocortisone Acetate] 0.1 mg PO DAILY 06/19/19 [History] Ketorolac [Toradol] 10 mg PO Q6H PRN 3 Days #20 tab 06/26/19 [Rx] Ondansetron HCl [Zofran] 4 mg PO Q8H #10 tablet 06/26/19 [Rx] Past Medical History HEENT History: Reports: None Cardiovascular History: Reports: None Other Cardiovascular History: states has a leaky valve Respiratory History: Reports: None Gastrointestinal History: Reports: None Genitourinary History: Reports: None 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: Musculoskeletal History: Reports: None Neurological History: Reports: Migraines Psychiatric History: Reports: OCD Endocrine/Metabolic History: Reports: None Insulin Pump Model and Skate Boarder: None Hematologic History: Reports: None Immunologic History: Reports: None Oncologic (Cancer) History: Reports: None Dermatologic History: Reports: None - Infectious Disease History Infectious Disease History: Reports: Chicken Pox - Past Surgical History Head Surgeries/Procedures: Reports: None GI Surgical History: Reports: Cholecystectomy Female Surgical History: Reports: None Musculoskeletal Surgical History: Reports: None Social & Family History - Family History Family Medical History: Noncontributory - Tobacco Use Smoking Status *Q: Never Smoker - Caffeine Use Caffeine Use: Reports: Tea - Recreational Drug Use Recreational Drug Use: No ED ROS GENERAL - Review of Systems Review Of Systems: See Below Constitutional: Reports: Malaise, Fatigue. Denies: Fever Respiratory: Reports: No Symptoms Cardiovascular: Reports: No Symptoms Endocrine: Reports: No Symptoms GI/Abdominal: Reports: Abdominal Pain, Diarrhea, Nausea, Vomiting Musculoskeletal: Reports: No Symptoms Skin: Reports: No Symptoms ED EXAM, GENERAL - Physical Exam Exam: See Below General Appearance: Alert, WD/WN, No Apparent Distress Head: Atraumatic, Normocephalic Neck: Normal Inspection Respiratory/Chest: No Respiratory Distress, Lungs Clear, Normal Breath Sounds Cardiovascular: Regular Rate, Rhythm, No Murmur GI/Abdominal: Soft, Non-Tender, No Distention Extremities: Normal Inspection Neurological: Alert, Oriented, Normal Cognition Course - Vital Signs Last Recorded V/S: Last Vital Signs Temp 96.7 F L 06/26/19 15:36 Pulse 77 06/26/19 15:36 Resp 17 06/26/19 15:36 BP 100/58 L 06/26/19 15:36 Pulse Ox 97 06/26/19 15:36 - Orders/Labs/Meds Orders: Active Orders 24 hr Category Date Time Status Sodium Chloride 0.9% [Saline Flush] Med 06/26/19 16:20 Active 10 ml FLUSH ASDIRECTED PRN Sodium Chloride 0.9% [Saline Flush] Med 06/26/19 16:20 Active 2.5 ml FLUSH ASDIRECTED PRN Saline Lock Insert [OM.PC] Stat Oth 06/26/19 16:20 Ordered Medication Orders Sodium Chloride (Saline Flush) 10 ml FLUSH ASDIRECTED PRN PRN Reason: Keep Vein Open Last Admin: 06/26/19 16:46 Dose: 10 ml Sodium Chloride (Saline Flush) 2.5 ml FLUSH ASDIRECTED PRN PRN Reason: Keep Vein Open Last Admin: 06/26/19 16:46 Dose: 2.5 ml Labs: Laboratory Tests 06/26/19 06/26/19 06/26/19 Range/Units 16:35 16:35 17:10 WBC 8.80 (4.0-11.0) K/uL RBC 4.24 L (4.30-5.90) M/uL Hgb 12.4 (12.0-16.0) g/dL Hct 39.7 (36.0-46.0) % MCV 93.6 (80.0-98.0) fL MCH 29.2 (27.0-32.0) pg MCHC 31.2 (31.0-37.0) g/dL RDW Std Deviation 49.7 (28.0-62.0) fl RDW Coeff of Yan 15 (11.0-15.0) % Plt Count 258 (150-400) K/uL MPV 10.60 (7.40-12.00) fL Neut % (Auto) 63.9 (48.0-80.0) % Lymph % (Auto) 26.1 (16.0-40.0) % [place] % (Auto) 7.0 (0.0-15.0) % Eos % (Auto) 2.8 (0.0-7.0) % Baso % (Auto) 0.2 (0.0-1.5) % Neut # (Auto) 5.6 (1.4-5.7) K/uL Lymph # (Auto) 2.3 (0.6-2.4) K/uL [place] # (Auto) 0.6 (0.0-0.8) K/uL Eos # (Auto) 0.3 (0.0-0.7) K/uL Baso # (Auto) 0.0 (0.0-0.1) K/uL Nucleated RBC % 0.0 /100WBC Nucleated RBCs # 0 K/uL Sodium 140 (136-145) mmol/L Potassium 3.9 (3.5-5.1) mmol/L Chloride 106 (98-107) mmol/L Carbon Dioxide 26.7 (21.0-32.0) mmol/L BUN 8 (7.0-18.0) mg/dL Creatinine 0.6 (0.6-1.0) mg/dL Est Cr Clr Drug Dosing 94.63 mL/min Estimated GFR (MDRD) > 60.0 ml/min Glucose 85 (74-106) mg/dL Calcium 8.6 (8.5-10.1) mg/dL Total Bilirubin 0.3 (0.2-1.0) mg/dL AST 10 L (15-37) IU/L ALT 13 L (14-63) IU/L Alkaline Phosphatase 48 (46-116) U/L Total Protein 6.8 (6.4-8.2) g/dL Albumin 3.2 L (3.4-5.0) g/dL Globulin 3.6 (2.6-4.0) g/dL Albumin/Globulin Ratio 0.9 (0.9-1.6) Lipase 120 (73-393) U/L Urine Color YELLOW Urine Appearance SLT CLOUDY Urine pH 6.0 (5.0-8.0) Ur Specific [place] >= 1.030 (1.001-1.035) Urine Protein NEGATIVE (NEGATIVE) mg/dL Urine Glucose (UA) NEGATIVE (NEGATIVE) mg/dL Urine Ketones NEGATIVE (NEGATIVE) mg/dL Urine Occult Blood NEGATIVE (NEGATIVE) Urine Nitrite NEGATIVE (NEGATIVE) Urine Bilirubin NEGATIVE (NEGATIVE) Urine Urobilinogen 0.2 (<2.0) EU/dL Ur Leukocyte Esterase NEGATIVE (NEGATIVE) Urine RBC 0-1 (0-2/HPF) Urine WBC 0-2 (0-5/HPF) Ur Epithelial Cells FEW (NONE-FEW) Urine Bacteria FEW (NEGATIVE) Urine HCG, Qual (NEGATIVE) 06/26/19 Range/Units 17:10 WBC (4.0-11.0) K/uL RBC (4.30-5.90) M/uL Hgb (12.0-16.0) g/dL Hct (36.0-46.0) % MCV (80.0-98.0) fL MCH (27.0-32.0) pg MCHC (31.0-37.0) g/dL RDW Std Deviation (28.0-62.0) fl RDW Coeff of Yan (11.0-15.0) % Plt Count (150-400) K/uL MPV (7.40-12.00) fL Neut % (Auto) (48.0-80.0) % Lymph % (Auto) (16.0-40.0) % [place] % (Auto) (0.0-15.0) % Eos % (Auto) (0.0-7.0) % Baso % (Auto) (0.0-1.5) % Neut # (Auto) (1.4-5.7) K/uL Lymph # (Auto) (0.6-2.4) K/uL [place] # (Auto) (0.0-0.8) K/uL Eos # (Auto) (0.0-0.7) K/uL Baso # (Auto) (0.0-0.1) K/uL Nucleated RBC % /100WBC Nucleated RBCs # K/uL Sodium (136-145) mmol/L Potassium (3.5-5.1) mmol/L Chloride (98-107) mmol/L Carbon Dioxide (21.0-32.0) mmol/L BUN (7.0-18.0) mg/dL Creatinine (0.6-1.0) mg/dL Est Cr Clr Drug Dosing mL/min Estimated GFR (MDRD) ml/min Glucose (74-106) mg/dL Calcium (8.5-10.1) mg/dL Total Bilirubin (0.2-1.0) mg/dL AST (15-37) IU/L ALT (14-63) IU/L Alkaline Phosphatase (46-116) U/L Total Protein (6.4-8.2) g/dL Albumin (3.4-5.0) g/dL Globulin (2.6-4.0) g/dL Albumin/Globulin Ratio (0.9-1.6) Lipase (73-393) U/L Urine Color Urine Appearance Urine pH (5.0-8.0) Ur Specific [place] (1.001-1.035) Urine Protein (NEGATIVE) mg/dL Urine Glucose (UA) (NEGATIVE) mg/dL Urine Ketones (NEGATIVE) mg/dL Urine Occult Blood (NEGATIVE) Urine Nitrite (NEGATIVE) Urine Bilirubin (NEGATIVE) Urine Urobilinogen (<2.0) EU/dL Ur Leukocyte Esterase (NEGATIVE) Urine RBC (0-2/HPF) Urine WBC (0-5/HPF) Ur Epithelial Cells (NONE-FEW) Urine Bacteria (NEGATIVE) Urine HCG, Qual NEGATIVE (NEGATIVE) Meds: Medications Generic Name Dose Route Start Last Admin Trade Name Freq PRN Reason Stop Dose Admin Sodium Chloride 10 ml 06/26/19 16:20 06/26/19 16:46 Saline Flush FLUSH 10 ml ASDIRECTED PRN Administration Keep Vein Open Sodium Chloride 2.5 ml 06/26/19 16:20 06/26/19 16:46 Saline Flush FLUSH 2.5 ml ASDIRECTED PRN Administration Keep Vein Open Discontinued Medications Generic Name Dose Route Start Last Admin Trade Name Edin PRN Reason Stop Dose Admin Sodium Chloride 1,000 mls @ 999 mls/hr 06/26/19 16:20 06/26/19 16:36 Normal Saline IV 06/26/19 17:20 999 mls/hr BOLUS ONE Administration Ketorolac Tromethamine 30 mg 06/26/19 16:20 06/26/19 16:38 Toradol IVPUSH 06/26/19 16:21 30 mg ONETIME ONE Administration Ondansetron HCl 4 mg 06/26/19 15:52 06/26/19 15:59 Zofran Odt PO 06/26/19 15:53 4 mg ONETIME ONE Administration Ondansetron HCl 4 mg 06/26/19 16:20 06/26/19 16:38 Zofran IVPUSH 06/26/19 16:21 4 mg ONETIME ONE Administration - Re-Assessments/Exams Free Text/Narrative Re-Assessment/Exam: 06/26/19 17:56 VS stable and PE benign. ED work up clinically unremarkable. Pt improved with ED therapy and is comfortable with discharge. Strict return precautions discussed should symptoms worsen or any concerns arise. Departure - Departure Time of Disposition: 17:47 Disposition: Home, Self-Care 01 Condition: Good Clinical Impression: Nausea & vomiting, Diarrhea - Discharge Information *PRESCRIPTION DRUG MONITORING PROGRAM REVIEWED*: Not Applicable *COPY OF PRESCRIPTION DRUG MONITORING REPORT IN PATIENT BOB: Not Applicable Prescriptions: Ketorolac [Toradol] 10 mg PO Q6H PRN 3 Days #20 tab PRN Reason: Pain Ondansetron HCl [Zofran] 4 mg PO Q8H #10 tablet Instructions: Nausea and Vomiting, Adult, [id number], Diarrhea, Adult, Easy- to-Read Referrals: PCP,None [Primary Care Provider] - Forms: ED Department Discharge Additional Instructions: My general discharge The following information is given to patients seen in the emergency department who are being discharged to home. This information is to outline your options for follow-up care. We provide all patients seen in our emergency department with a follow-up referral. The need for follow-up, as well as the timing and circumstances, are variable depending upon the specifics of your emergency department visit. If you don't have a primary care physician on staff, we will provide you with a referral. We always advise you to contact your personal physician following an emergency department visit to inform them of the circumstance of the visit and for follow-up with them and/or the need for any referrals to a consulting specialist. The emergency department will also refer you to a specialist when appropriate. This referral assures that you have the opportunity for follow-up care with a specialist. All of these measure are taken in an effort to provide you with optimal care, which includes your follow-up. Under all circumstances we always encourage you to contact your private physician who remains a resource for coordinating your care. When calling for follow-up care, please make the office aware that this follow-up is from your recent emergency room visit. If for any reason you are refused follow-up, please contact the [facility] Emergency Department at and asked to speak to the emergency department charge nurse. Sepsis Event Note - Evaluation Sepsis Screening Result: No Definite Risk - Focused Exam Vital Signs: Vital Signs Temp Pulse Resp BP Pulse Ox 06/26/19 15:36 96.7 F L 77 17 100/58 L 97 Date Exam was Performed: 06/26/19 Time Exam was Performed: 17:56 - My Orders Last 24 Hours: My Active Orders 06/26/19 16:20 Sodium Chloride 0.9% [Saline Flush] 10 ml FLUSH ASDIRECTED PRN Sodium Chloride 0.9% [Saline Flush] 2.5 ml FLUSH ASDIRECTED PRN Saline Lock Insert [OM.PC] Stat - Assessment/Plan Last 24 Hours: My Active Orders 06/26/19 16:20 Sodium Chloride 0.9% [Saline Flush] 10 ml FLUSH ASDIRECTED PRN Sodium Chloride 0.9% [Saline Flush] 2.5 ml FLUSH ASDIRECTED PRN Saline Lock Insert [OM.PC] Stat
[2019-06-26] MEDS ORDERED: Sodium Chloride 0.9% 2.5 ML Syringe FLUSH PRN (16:20)
[2019-06-26] MEDS ORDERED: Sodium Chloride 0.9% 1,000 ML IV ONE (16:20)
[2019-06-26] MEDS ORDERED: Ondansetron 4 MG/2 ML SDV IVPUSH ONE (16:20)
[2019-06-26] MEDS ORDERED: Ketorolac 30 MG/ML SDV IVPUSH ONE (16:20)
[2019-06-26] MEDS ORDERED: Sodium Chloride 0.9% 10 ML Syringe FLUSH PRN (16:20)
[2019-06-26 17:18] LABS: BLOOD UREA NITROGEN,BUN 8 mg/dL (7.0-18.0); CARBON DIOXIDE,CO2 26.7 mmol/L (21.0-32.0); CHLORIDE,CL 106 mmol/L (98-107); GLUCOSE RANDOM 85 mg/dL (74-106); LIPASE 120 U/L (73-393); POTASSIUM,K 3.9 mmol/L (3.5-5.1); SODIUM,NA 140 mmol/L (136-145)
== END 2019-06-26 18:05 | disposition home or self-care (01) ==
LOC: MW.ED 15:28
DX: R11.2 Nausea with vomiting, unspecified (principal); R19.7 Diarrhea, unspecified; F42.9 Obsessive-compulsive disorder, unspecified; Z90.49 Acquired absence of other specified parts of digestive tract; Z88.8 Allergy status to other drugs, medicaments and biological substances; Z79.899 Other long term (current) drug therapy
CPT/HCPCS: 80053; 81001; 81025; 83690; 85025; 87804; 96361; 96374; 96375; 99284; A9270; J1885; J2405; J7030

== ENCOUNTER 2019-07-24 14:29 | Observation (INO) | payer MEDICARE, OTHER ==
[2019-07-24] MEDS ORDERED: Sodium Chloride 0.9% 2.5 ML Syringe FLUSH PRN (14:31)
[2019-07-24] MEDS ORDERED: Sodium Chloride 0.9% 10 ML Syringe FLUSH PRN (14:31)
[2019-07-24] MEDS ORDERED: Aspirin 81 MG Tab.Chew PO ONE (14:34)
--- NOTE | 2019-07-24 14:40 | EDM.PDOC ---
ED HPI GENERAL MEDICAL PROBLEM - General Chief Complaint: Cardiovascular Problem Stated Complaint: shortness of breath Time Seen by Provider: 07/24/19 14:38 Source of Information: Reports: Patient History Limitations: Reports: No Limitations - History of Present Illness INITIAL COMMENTS - FREE TEXT/NARRATIVE: HISTORY AND PHYSICAL: History of present illness: Patient is a 44-year-old female who presents to the emergency room with complaints of midsternal chest pain x2 days. She states she does have a history of cardiac disease, reporting she has a "leaky valve". 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 She states her last cardiology appointment went fine and was told to follow-up routinely. Yesterday she started having midsternal chest pain and did take 1 tablet of nitro which she had available to her, states this did not help. Pain was persistent through the day into this morning and states it is gotten worse. She did attempt 1 nitro prior to arrival and states she felt no relief with this. She does have some mild shortness of breath, feels slightly dizzy and states she has a generalized headache. Reports nothing makes the pain better although physical activity or pressing on her anterior chest makes the pain worse. Patient denies any fever, chills, change in vision, syncope or near syncope. Denies any back pain, neck pain or cough. Denies any abdominal pain, nausea, vomiting, diarrhea, constipation or dysuria. Patient has been eating and drinking appropriately. Review of systems: As per history of present illness and below otherwise all systems reviewed and negative. Past medical history: As per history of present illness and as reviewed below otherwise noncontributory. Surgical history: As per history of present illness and as reviewed below otherwise noncontributory. Social history: See social history for further information Family history: As per history of present illness and as reviewed below otherwise noncontributory. Physical exam: General: Well-developed and well-nourished 44-year-old female. Alert and oriented. Nontoxic-appearing and in no acute distress. HEENT: Atraumatic, normocephalic, pupils equal and reactive bilaterally, negative for conjunctival pallor or scleral icterus, mucous membranes moist, TMs normal bilaterally, throat clear, neck supple, nontender, trachea midline. No drooling or trismus noted. No meningeal signs. No hot potato voice noted. Lungs: Diminished to auscultation, breath sounds equal bilaterally, anterior mid chest tender with palpation. Heart: S1S2, regular rate and rhythm without overt murmur Abdomen: Soft, obese, nontender. Negative for masses or hepatosplenomegaly. Negative for costovertebral tenderness. Skin: Intact, warm, dry. No lesions or rashes noted. Extremities: Atraumatic, moves all extremities per self without difficulty or deficits. No pedal edema noted. Neurovascular unremarkable. Neuro: Awake, alert, oriented. Cranial nerves II through XII unremarkable. Cerebellum unremarkable. Motor and sensory unremarkable throughout. Exam nonfocal. Notes: CXR is unremarkable. EKG shows normal sinus rhythm with rate of 72, no changes from previous EKG. Lab work unremarkable with the exception of patients D.Dimer elevated, CTA ordered. VSS. All finding were shared with patient. She states she does not want to go home as she is convinced that there is "something wrong with my heart". Her vital signs are stable. I did contact Dr. Acosta, the hospitalist, about this patient. He is agreeable to keeping her with telemetry. Diagnostics: CBC, CMP, UA, DDimer, Troponin, EKG, CXR Therapeutics: Saline lock, ASA, Morphine, NS, Nitro paste Impression: Chest pain r/o [place] Plan: Observation admission to med/surg with telemetry Definitive disposition and diagnosis as appropriate pending reevaluation and review of above. Left Chest Pain Score (Numeric/FACES): 8 - Related Data Allergies Allergy/AdvReac Type Severity Reaction Status Date / Time carbamazepine [From Tegretol] Allergy Rash Verified 07/24/19 14:46 Home Meds: Home Meds Cariprazine Hydrochloride [Vraylar] 3 mg PO ASDIRECTED 04/05/19 [History] Escitalopram [Lexapro] 20 mg PO DAILY 04/05/19 [History] Mecobalamin [B-12] 1,000 injection INJECT WEEKLY 04/05/19 [History] SUMAtriptan [Imitrex] 50 mg PO ASDIRECTED PRN 04/05/19 [History] Fludrocortisone [Fludrocortisone Acetate] 0.1 mg PO DAILY 06/19/19 [History] Ketorolac [Toradol] 10 mg PO Q6H PRN 3 Days #20 tab 06/26/19 [Rx] Ondansetron HCl [Zofran] 4 mg PO Q8H #10 tablet 06/26/19 [Rx] clonazePAM [Klonopin] 0.5 mg PO TID 07/24/19 [History] Past Medical History HEENT History: Reports: None Cardiovascular History: Reports: None Other Cardiovascular History: states has a leaky valve Respiratory History: Reports: None Gastrointestinal History: Reports: None Genitourinary History: Reports: None 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: Musculoskeletal History: Reports: None Neurological History: Reports: Migraines Psychiatric History: Reports: OCD Endocrine/Metabolic History: Reports: None 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: None Hematologic History: Reports: None Immunologic History: Reports: None Oncologic (Cancer) History: Reports: None Dermatologic History: Reports: None - Infectious Disease History Infectious Disease History: Reports: Chicken Pox - Past Surgical History Head Surgeries/Procedures: Reports: None GI Surgical History: Reports: Cholecystectomy Female Surgical History: Reports: None Musculoskeletal Surgical History: Reports: None Social & Family History - Family History Family Medical History: Noncontributory - Caffeine Use Caffeine Use: Reports: Tea ED ROS GENERAL - Review of Systems Review Of Systems: Comprehensive ROS is negative, except as noted in HPI. ED EXAM, GENERAL - Physical Exam Exam: See Below (See dictation) Course - Vital Signs Last Recorded V/S: Last Vital Signs Temp 97.4 F 07/24/19 14:36 Pulse 70 07/24/19 16:05 Resp 14 07/24/19 16:05 BP 114/68 07/24/19 16:05 Pulse Ox 97 07/24/19 16:05 - Orders/Labs/Meds Orders: Active Orders 24 hr Category Date Time Status EKG Documentation Completion [RC] STAT Care 07/24/19 14:31 Active Sodium Chloride 0.9% [Normal Saline] 1,000 ml Med 07/24/19 15:08 Active IV STAT Sodium Chloride 0.9% [Saline Flush] Med 07/24/19 14:31 Active 10 ml FLUSH ASDIRECTED PRN Sodium Chloride 0.9% [Saline Flush] Med 07/24/19 14:31 Active 2.5 ml FLUSH ASDIRECTED PRN Saline Lock Insert [OM.PC] Stat Oth 07/24/19 14:31 Ordered Medication Orders Sodium Chloride (Normal Saline) 1,000 mls @ 125 mls/hr IV STAT ONE Stop: 07/24/19 23:07 Last Admin: 07/24/19 15:20 Dose: 125 mls/hr Sodium Chloride (Saline Flush) 10 ml FLUSH ASDIRECTED PRN PRN Reason: Keep Vein Open Last Admin: 07/24/19 14:40 Dose: 10 ml Sodium Chloride (Saline Flush) 2.5 ml FLUSH ASDIRECTED PRN PRN Reason: Keep Vein Open Last Admin: 07/24/19 14:39 Dose: 2.5 ml Labs: Laboratory Tests 07/24/19 07/24/19 07/24/19 Range/Units 14:30 14:30 14:30 WBC 8.85 (4.0-11.0) K/uL RBC 4.24 L (4.30-5.90) M/uL Hgb 12.6 (12.0-16.0) g/dL Hct 40.1 (36.0-46.0) % MCV 94.6 (80.0-98.0) fL MCH 29.7 (27.0-32.0) pg MCHC 31.4 (31.0-37.0) g/dL RDW Std Deviation 49.7 (28.0-62.0) fl RDW Coeff of Yan 14 (11.0-15.0) % Plt Count 243 (150-400) K/uL MPV 10.60 (7.40-12.00) fL Neut % (Auto) 63.7 (48.0-80.0) % Lymph % (Auto) 28.1 (16.0-40.0) % [place] % (Auto) 5.5 (0.0-15.0) % Eos % (Auto) 2.4 (0.0-7.0) % Baso % (Auto) 0.3 (0.0-1.5) % Neut # (Auto) 5.6 (1.4-5.7) K/uL Lymph # (Auto) 2.5 H (0.6-2.4) K/uL [place] # (Auto) 0.5 (0.0-0.8) K/uL Eos # (Auto) 0.2 (0.0-0.7) K/uL Baso # (Auto) 0.0 (0.0-0.1) K/uL Nucleated RBC % 0.0 /100WBC Nucleated RBCs # 0 K/uL D-Dimer, Quantitative 0.54 H (0.0-0.50) mg/L FEU Sodium 141 (136-145) mmol/L Potassium 4.0 (3.5-5.1) mmol/L Chloride 107 (98-107) mmol/L Carbon Dioxide 26.6 (21.0-32.0) mmol/L BUN 10 (7.0-18.0) mg/dL Creatinine 0.6 (0.6-1.0) mg/dL Est Cr Clr Drug Dosing 94.63 mL/min Estimated GFR (MDRD) > 60.0 ml/min Glucose 117 H (74-106) mg/dL Calcium 8.9 (8.5-10.1) mg/dL Total Bilirubin 0.3 (0.2-1.0) mg/dL AST 13 L (15-37) IU/L ALT 12 L (14-63) IU/L Alkaline Phosphatase 58 (46-116) U/L Troponin I < 0.050 (0.000-0.056) ng/mL B-Natriuretic Peptide (<100) PG/ML Total Protein 6.7 (6.4-8.2) g/dL Albumin 3.1 L (3.4-5.0) g/dL Globulin 3.6 (2.6-4.0) g/dL Albumin/Globulin Ratio 0.9 (0.9-1.6) 07/23/ Range/Units 14:30 WBC (4.0-11.0) K/uL RBC (4.30-5.90) M/uL Hgb (12.0-16.0) g/dL Hct (36.0-46.0) % MCV (80.0-98.0) fL MCH (27.0-32.0) pg MCHC (31.0-37.0) g/dL RDW Std Deviation (28.0-62.0) fl RDW Coeff of Yan (11.0-15.0) % Plt Count (150-400) K/uL MPV (7.40-12.00) fL Neut % (Auto) (48.0-80.0) % Lymph % (Auto) (16.0-40.0) % [place] % (Auto) (0.0-15.0) % Eos % (Auto) (0.0-7.0) % Baso % (Auto) (0.0-1.5) % Neut # (Auto) (1.4-5.7) K/uL Lymph # (Auto) (0.6-2.4) K/uL [place] # (Auto) (0.0-0.8) K/uL Eos # (Auto) (0.0-0.7) K/uL Baso # (Auto) (0.0-0.1) K/uL Nucleated RBC % /100WBC Nucleated RBCs # K/uL D-Dimer, Quantitative (0.0-0.50) mg/L FEU Sodium (136-145) mmol/L Potassium (3.5-5.1) mmol/L Chloride (98-107) mmol/L Carbon Dioxide (21.0-32.0) mmol/L BUN (7.0-18.0) mg/dL Creatinine (0.6-1.0) mg/dL Est Cr Clr Drug Dosing mL/min Estimated GFR (MDRD) ml/min Glucose (74-106) mg/dL Calcium (8.5-10.1) mg/dL Total Bilirubin (0.2-1.0) mg/dL AST (15-37) IU/L ALT (14-63) IU/L Alkaline Phosphatase (46-116) U/L Troponin I (0.000-0.056) ng/mL B-Natriuretic Peptide 15 (<100) PG/ML Total Protein (6.4-8.2) g/dL Albumin (3.4-5.0) g/dL Globulin (2.6-4.0) g/dL Albumin/Globulin Ratio (0.9-1.6) Meds: Medications Generic Name Dose Route Start Last Admin Trade Name Freq PRN Reason Stop Dose Admin Sodium Chloride 1,000 mls @ 125 mls/hr 07/24/19 15:08 07/24/19 15:20 Normal Saline IV 07/24/19 23:07 125 mls/hr STAT ONE Administration Sodium Chloride 10 ml 07/24/19 14:31 07/24/19 14:40 Saline Flush FLUSH 10 ml ASDIRECTED PRN Administration Keep Vein Open Sodium Chloride 2.5 ml 07/24/19 14:31 07/24/19 14:39 Saline Flush FLUSH 2.5 ml ASDIRECTED PRN Administration Keep Vein Open Discontinued Medications Generic Name Dose Route Start Last Admin Trade Name Freq PRN Reason Stop Dose Admin Aspirin 324 mg 07/24/19 14:34 07/24/19 14:39 Aspirin PO 07/24/19 14:35 324 mg ONETIME ONE Administration Iopamidol 70 ml 07/24/19 15:46 07/24/19 15:46 Isovue Multipack-370 (76%) IVPUSH 07/24/19 15:47 70 ml ONETIME ONE Administration Morphine Sulfate 2 mg 07/24/19 14:43 07/24/19 14:48 Morphine IVPUSH 07/24/19 14:44 2 mg ONETIME ONE Administration Departure - Departure Time of Disposition: 16:12 Disposition: Refer to Observation Clinical Impression: Chest pain, rule out acute myocardial infarction Referrals: PCP,None [Primary Care Provider] - Forms: ED Department Discharge Sepsis Event Note - Focused Exam Vital Signs: Vital Signs Temp Pulse Resp BP Pulse Ox 07/24/19 16:05 70 14 114/68 97 07/24/19 14:36 97.4 F 84 22 H 145/79 H 94 L Date Exam was Performed: 07/24/19 Time Exam was Performed: 16:11 - My Orders Last 24 Hours: My Active Orders 07/24/19 14:31 EKG Documentation Completion [RC] STAT Sodium Chloride 0.9% [Saline Flush] 10 ml FLUSH ASDIRECTED PRN Sodium Chloride 0.9% [Saline Flush] 2.5 ml FLUSH ASDIRECTED PRN Saline Lock Insert [OM.PC] Stat 07/24/19 15:08 Sodium Chloride 0.9% [Normal Saline] 1,000 ml IV STAT - Assessment/Plan Last 24 Hours: My Active Orders 07/24/19 14:31 EKG Documentation Completion [RC] STAT Sodium Chloride 0.9% [Saline Flush] 10 ml FLUSH ASDIRECTED PRN Sodium Chloride 0.9% [Saline Flush] 2.5 ml FLUSH ASDIRECTED PRN Saline Lock Insert [OM.PC] Stat 07/24/19 15:08 Sodium Chloride 0.9% [Normal Saline] 1,000 ml IV STAT
[2019-07-24] MEDS ORDERED: Morphine 2 MG/ML Syringe IVPUSH ONE (14:43)
--- NOTE | 2019-07-24 15:02 | CR ---
Chest: Portable view of the chest was obtained. Comparison: Prior chest x-ray of 04/14/19. Heart size and mediastinum are normal. Lungs are clear with no acute parenchymal change. Old healed rib fracture is noted within the right 6th rib. No acute osseous finding is seen. Impression: 1. Nothing acute is appreciated on portable chest x-ray. Diagnostic code #1 This report was dictated in MDT
[2019-07-24 15:05] LABS: BLOOD UREA NITROGEN,BUN 10 mg/dL (7.0-18.0); CARBON DIOXIDE,CO2 26.6 mmol/L (21.0-32.0); CHLORIDE,CL 107 mmol/L (98-107); GLUCOSE RANDOM 117 mg/dL (74-106); SODIUM,NA 141 mmol/L (136-145)
[2019-07-24] MEDS ORDERED: Sodium Chloride 0.9% 1,000 ML IV ONE (15:08)
[2019-07-24] MEDS ORDERED: Iopamidol 755 MG/ML 200 ML Multipack Bottle IVPUSH ONE (15:46)
--- NOTE | 2019-07-24 16:09 | CT ---
CT chest Technique: Multiple axial sections of the chest were obtained. Intravenous contrast was utilized. Study performed as a pulmonary angiogram protocol. Findings: Pulmonary arteries are moderately well-opacified. No discrete filling defects are seen within the main or segmental branches to indicate pulmonary emboli. Smaller subsegmental pulmonary emboli could be missed. Aorta shows no aneurysm or dissection. No pericardial thickening is seen. Visualized upper abdominal structures shows no abnormality. Surgical clips are seen prior cholecystectomy. Lungs are clear with no acute parenchymal change. Mediastinum and hilar regions show no adenopathy or mass. Lungs are clear with no acute parenchymal change. No pleural effusions are noted. Bone window settings were reviewed which shows no acute osseous finding. Impression: 1. No findings of pulmonary embolism as described above. 2. Nothing acute is seen on CT study of the chest. Diagnostic code #2 Study was dictated in MDT
[2019-07-24] MEDS ORDERED: Nitroglycerin 2% Oint 1 GM UD Packet TOP ONE (16:17)
[2019-07-24] MEDS ORDERED: SUMAtriptan 50 MG Tab PO PRN (17:57)
[2019-07-24] MEDS: Fludrocortisone 0.1 MG Tab PO SCH (20:10)
[2019-07-24] MEDS: Escitalopram 10 MG Tab PO SCH (20:10)
[2019-07-24] MEDS: Morphine 2 MG/ML Syringe IVPUSH PRN (20:11)
[2019-07-24] MEDS: ClonazePAM 0.5 MG Tab PO SCH (21:57)
--- NOTE | 2019-07-24 22:46 | PCM.HP.2 ---
H&P History of Present Illness - General Date of Service: 07/24/19 Admit Problem/Dx: Admission Diagnosis/Problem Admission Diagnosis/Problem Chest pain, rule out acute myocardial infarction - History of Present Illness Initial Comments - Free Text/Narative: 44 yo female who presents to the ED with complaint of chest pain. She describes the chest pain as spasms of her chest wall that have been intermittent for the past several days. They did not relent today which is why she decided to come to the ED. She has had these spasms on and off for years. 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 She state she has no coronary artery blockages based on prior cardiac catheterization. Left Chest Pain Score (Numeric/FACES): 9 - Related Data Allergies/Adverse Reactions: Allergies Allergy/AdvReac Type Severity Reaction Status Date / Time carbamazepine [From Tegretol] Allergy Rash Verified 07/24/19 17:53 Home Medications: Home Meds Escitalopram [Lexapro] 20 mg PO DAILY 04/05/19 [History] Mecobalamin [B-12] 1,000 injection INJECT WEEKLY 04/05/19 [History] SUMAtriptan [Imitrex] 50 mg PO ASDIRECTED PRN 04/05/19 [History] Ketorolac [Toradol] 10 mg PO Q6H PRN 3 Days #20 tab 06/26/19 [Rx] Ondansetron HCl [Zofran] 4 mg PO Q8H #10 tablet 06/26/19 [Rx] Cariprazine Hydrochloride [Vraylar] 3 mg PO DAILY 07/24/19 [History] Fludrocortisone [Florinef] 0.1 mg PO DAILY 07/24/19 [History] Charlton Carbonate 900 mg PO DAILY 07/24/19 [History] clonazePAM [Klonopin] 0.5 mg PO TID 07/24/19 [History] Past Medical History HEENT History: Reports: None Cardiovascular History: Reports: None Other Cardiovascular History: states has a leaky valve, weak heart muscle. 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 Hematologic History: Reports: None Immunologic History: Reports: None Oncologic (Cancer) History: Reports: None Dermatologic History: Reports: None - Infectious Disease History Infectious Disease History: Reports: Chicken Pox - Past Surgical History Head Surgeries/Procedures: Reports: None Cardiovascular Surgical History: Reports: None Respiratory Surgical History: Reports: None GI Surgical History: Reports: Cholecystectomy Female Surgical History: Reports: None Endocrine Surgical History: Reports: None Neurological Surgical History: Reports: None Musculoskeletal Surgical History: Reports: None Social & Family History - Family History Family Medical History: Noncontributory - Tobacco Use Smoking Status *Q: Former Smoker Packs/Tins Daily: 1 Used Tobacco, but Quit: Yes Month/Year Tobacco Last Used: 1995 Second Hand Smoke Exposure: No - Caffeine Use Caffeine Use: Reports: Coffee, Soda, Tea - Recreational Drug Use Recreational Drug Use: Yes Recreational Drug Type: Reports: Cocaine, LSD (Acid), Marijuana/Hashish, Methamphetamine H&P Review of Systems - Review of Systems: Review Of Systems: Comprehensive ROS is negative, except as noted in HPI. Exam - Vital Signs Vital Signs: Last Vital Signs Temp 37.0 C 07/24/19 16:55 Pulse 70 07/24/19 16:05 Resp 18 07/24/19 16:55 BP 113/61 07/24/19 16:55 Pulse Ox 98 07/24/19 16:55 Weight: 149.8 kg - Exam General: Alert, Oriented HEENT: Mucosa Moist & [place] Neck: Supple Lungs: Clear to Auscultation, Normal Respiratory Effort Cardiovascular: Regular Rate, Regular Rhythm GI/Abdominal Exam: Normal Bowel Sounds, Soft, Non-Tender Extremities: Non-Tender, No Pedal Edema Skin: Warm, Dry, Intact - Patient Data Lab Results Last 24 hrs: Laboratory Results - last 24 hr 07/24/19 07/24/19 07/24/19 Range/Units 14:30 14:30 14:30 WBC 8.85 (4.0-11.0) K/uL RBC 4.24 L (4.30-5.90) M/uL Hgb 12.6 (12.0-16.0) g/dL Hct 40.1 (36.0-46.0) % MCV 94.6 (80.0-98.0) fL MCH 29.7 (27.0-32.0) pg MCHC 31.4 (31.0-37.0) g/dL RDW Std Deviation 49.7 (28.0-62.0) fl RDW Coeff of Yan 14 (11.0-15.0) % Plt Count 243 (150-400) K/uL MPV 10.60 (7.40-12.00) fL Neut % (Auto) 63.7 (48.0-80.0) % Lymph % (Auto) 28.1 (16.0-40.0) % [place] % (Auto) 5.5 (0.0-15.0) % Eos % (Auto) 2.4 (0.0-7.0) % Baso % (Auto) 0.3 (0.0-1.5) % Neut # (Auto) 5.6 (1.4-5.7) K/uL Lymph # (Auto) 2.5 H (0.6-2.4) K/uL [place] # (Auto) 0.5 (0.0-0.8) K/uL Eos # (Auto) 0.2 (0.0-0.7) K/uL Baso # (Auto) 0.0 (0.0-0.1) K/uL Nucleated RBC % 0.0 /100WBC Nucleated RBCs # 0 K/uL D-Dimer, Quantitative 0.54 H (0.0-0.50) mg/L FEU Sodium 141 (136-145) mmol/L Potassium 4.0 (3.5-5.1) mmol/L Chloride 107 (98-107) mmol/L Carbon Dioxide 26.6 (21.0-32.0) mmol/L BUN 10 (7.0-18.0) mg/dL Creatinine 0.6 (0.6-1.0) mg/dL Est Cr Clr Drug Dosing 94.63 mL/min Estimated GFR (MDRD) > 60.0 ml/min Glucose 117 H (74-106) mg/dL Calcium 8.9 (8.5-10.1) mg/dL Total Bilirubin 0.3 (0.2-1.0) mg/dL AST 13 L (15-37) IU/L ALT 12 L (14-63) IU/L Alkaline Phosphatase 58 (46-116) U/L Troponin I < 0.050 (0.000-0.056) ng/mL B-Natriuretic Peptide (<100) PG/ML Total Protein 6.7 (6.4-8.2) g/dL Albumin 3.1 L (3.4-5.0) g/dL Globulin 3.6 (2.6-4.0) g/dL Albumin/Globulin Ratio 0.9 (0.9-1.6) 07/24/19 07/24/19 Range/Units 14:30 20:42 WBC (4.0-11.0) K/uL RBC (4.30-5.90) M/uL Hgb (12.0-16.0) g/dL Hct (36.0-46.0) % MCV (80.0-98.0) fL MCH (27.0-32.0) pg MCHC (31.0-37.0) g/dL RDW Std Deviation (28.0-62.0) fl RDW Coeff of Yan (11.0-15.0) % Plt Count (150-400) K/uL MPV (7.40-12.00) fL Neut % (Auto) (48.0-80.0) % Lymph % (Auto) (16.0-40.0) % [place] % (Auto) (0.0-15.0) % Eos % (Auto) (0.0-7.0) % Baso % (Auto) (0.0-1.5) % Neut # (Auto) (1.4-5.7) K/uL Lymph # (Auto) (0.6-2.4) K/uL [place] # (Auto) (0.0-0.8) K/uL Eos # (Auto) (0.0-0.7) K/uL Baso # (Auto) (0.0-0.1) K/uL Nucleated RBC % /100WBC Nucleated RBCs # K/uL D-Dimer, Quantitative (0.0-0.50) mg/L FEU Sodium (136-145) mmol/L Potassium (3.5-5.1) mmol/L Chloride (98-107) mmol/L Carbon Dioxide (21.0-32.0) mmol/L BUN (7.0-18.0) mg/dL Creatinine (0.6-1.0) mg/dL Est Cr Clr Drug Dosing mL/min Estimated GFR (MDRD) ml/min Glucose (74-106) mg/dL Calcium (8.5-10.1) mg/dL Total Bilirubin (0.2-1.0) mg/dL AST (15-37) IU/L ALT (14-63) IU/L Alkaline Phosphatase (46-116) U/L Troponin I < 0.050 (0.000-0.056) ng/mL B-Natriuretic Peptide 15 (<100) PG/ML Total Protein (6.4-8.2) g/dL Albumin (3.4-5.0) g/dL Globulin (2.6-4.0) g/dL Albumin/Globulin Ratio (0.9-1.6) Result Diagrams: 07/24/19 14:30 07/24/19 14:30 Sepsis Event Note - Evaluation Sepsis Screening Result: No Definite Risk - Focused Exam Vital Signs: Vital Signs Temp Pulse Resp BP Pulse Ox 07/24/19 16:55 37.0 C 18 113/61 98 07/24/19 16:05 70 14 114/68 97 07/24/19 14:36 36.3 C 84 22 H 145/79 H 94 L Date Exam was Performed: 07/24/19 Time Exam was Performed: 22:43 Problem List Initiated/Reviewed/Updated: Yes Orders Last 24hrs: Active Orders 24 hr Category Date Time Status Admission Status [Patient Status] [ADT] Stat ADT 07/24/19 16:15 Active Cardiac Monitoring [RC] . DIRECTED Care 07/24/19 16:15 Inactive Telemetry Monitoring [Cardiac Monitoring] [RC] Q8H Care 07/24/19 17:08 Active Regular Diet [DIET] Diet 07/24/19 Dinner Active TROPONIN I [CHEM] Timed Lab 07/25/19 02:30 Ordered Cariprazine Hydrochloride [Vraylar] Med 07/25/19 09:00 Pending 3 mg PO DAILY ClonazePAM [KlonoPIN] Med 07/24/19 22:00 Active 0.5 mg PO TID Escitalopram [Lexapro] Med 07/24/19 20:00 Active 20 mg PO DAILY Fludrocortisone [Florinef] Med 07/24/19 20:00 Active 0.1 mg PO DAILY Charlton Carbonate [Charlton Carbonate] Med 07/25/19 09:00 Pending 900 mg PO DAILY Morphine Med 07/24/19 17:08 Active 2 mg IVPUSH Q4H PRN SUMAtriptan [Imitrex] Med 07/24/19 17:57 Pending 50 mg PO ASDIRECTED PRN Sodium Chloride 0.9% [Saline Flush] Med 07/24/19 14:31 Active 10 ml FLUSH ASDIRECTED PRN Sodium Chloride 0.9% [Saline Flush] Med 07/24/19 14:31 Active 2.5 ml FLUSH ASDIRECTED PRN Saline Lock Insert [OM.PC] Stat Oth 07/24/19 14:31 Ordered Medication Orders Clonazepam (Klonopin) 0.5 mg PO TID [facility] Last Admin: 07/24/19 21:57 Dose: 0.5 mg Escitalopram Oxalate (Lexapro) 20 mg PO DAILY [facility] Last Admin: 07/24/19 20:10 Dose: 20 mg Fludrocortisone Acetate (Florinef) 0.1 mg PO DAILY [facility] Last Admin: 07/24/19 20:10 Dose: 0.1 mg Morphine Sulfate (Morphine) 2 mg IVPUSH Q4H PRN PRN Reason: Pain Last Admin: 07/24/19 20:11 Dose: 2 mg Non-Formulary Medication (Cariprazine Hydrochloride [Vraylar]) 3 mg PO DAILY [facility] Non-Formulary Medication (Charlton Carbonate [Charlton Carbonate]) 900 mg PO DAILY [facility] Sodium Chloride (Saline Flush) 10 ml FLUSH ASDIRECTED PRN PRN Reason: Keep Vein Open Last Admin: 07/24/19 14:40 Dose: 10 ml Sodium Chloride (Saline Flush) 2.5 ml FLUSH ASDIRECTED PRN PRN Reason: Keep Vein Open Last Admin: 07/24/19 14:39 Dose: 2.5 ml Sumatriptan Succinate (Imitrex) 50 mg PO ASDIRECTED PRN PRN Reason: Pain Assessment/Plan Comment:: 44 yo female admitted for chest pain. We will rule out acute coronary syndrome with serial cardiac enzymes and monitor overnight on telemetry.
[2019-07-25] MEDS: Morphine 2 MG/ML Syringe IVPUSH PRN ×2 (03:16→08:26)
[2019-07-25] MEDS: ClonazePAM 0.5 MG Tab PO SCH (06:04)
[2019-07-25] MEDS: Escitalopram 10 MG Tab PO SCH (08:25)
[2019-07-25] MEDS: Fludrocortisone 0.1 MG Tab PO SCH (08:26)
[2019-07-25] MEDS ORDERED: Acetaminophen 500 MG Tab PO PRN (08:44)
[2019-07-25] MEDS ORDERED: VRAYLAR 3 MG PO SCH (09:00)
--- NOTE | 2019-07-25 12:09 | PCM.DCSUM1 ---
Discharge Summary - Hospital Course Free Text/Narrative:: 44-year-old female admitted for chest pain and ACS rule out. She has a PMH of hypotension, anxiety, depression, bipolar disorder and PTSD. Troponins were trended and were negative. CXR and CT angio were unremarkable. EKG on admission unremarkable. 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 Patient advised to follow-up with her PCP and coastal/harbor defense officer on discharge. Outpatient ECHO was recommended. - Discharge Data Discharge Date: 07/25/19 Discharge Disposition: Home, Self-Care 01 Condition: Stable - Referral to Home Health Primary Care Physician: PCP Not In Area - Patient Instructions Diet: Usual Diet as Tolerated Activity: As Tolerated Notify Provider of: Fever, Increased Pain, Swelling and Redness, Drainage, Nausea and/or Vomiting - Discharge Plan *PRESCRIPTION DRUG MONITORING PROGRAM REVIEWED*: Not Applicable *COPY OF PRESCRIPTION DRUG MONITORING REPORT IN PATIENT BOB: Not Applicable Prescriptions/Med Rec: Albuterol Sulfate [Albuterol Sulfate Hfa] 2 puff IH Q6H PRN 30 Days #1 hfa.aer.ad PRN Reason: Shortness Of Breath Home Medications: Home Meds Escitalopram [Lexapro] 20 mg PO DAILY 04/05/19 [History] Mecobalamin [B-12] 1,000 injection INJECT WEEKLY 04/05/19 [History] SUMAtriptan [Imitrex] 50 mg PO ASDIRECTED PRN 04/05/19 [History] Ketorolac [Toradol] 10 mg PO Q6H PRN 3 Days #20 tab 06/26/19 [Rx] Ondansetron HCl [Zofran] 4 mg PO Q8H #10 tablet 06/26/19 [Rx] Cariprazine Hydrochloride [Vraylar] 3 mg PO DAILY 07/24/19 [History] Fludrocortisone [Florinef] 0.1 mg PO DAILY 07/24/19 [History] clonazePAM [Klonopin] 0.5 mg PO TID 07/24/19 [History] Albuterol Sulfate [Albuterol Sulfate Hfa] 2 puff IH Q6H PRN 30 Days #1 hfa.aer.ad 07/25/19 [Rx] Deercroft Carbonate [Deercroft Carbonate ER] 900 mg PO BEDTIME 07/25/19 [History] Oxygen Therapy Mode: Room Air Patient Handouts: Albuterol inhalation powder, Nonspecific Chest Pain, Adult, [id number] Referrals: [facility] [Outside] Brian Lu MD [Ordering Only Provider] - 08/01/19 12:30 pm - Discharge Summary/Plan Comment DC Time >30 min.: No - Patient Data Vitals - Most Recent: Last Vital Signs Temp 97.0 F 07/25/19 08:12 Pulse 75 07/25/19 08:12 Resp 18 07/25/19 08:12 BP 80/52 L 07/25/19 08:12 Pulse Ox 98 07/25/19 08:12 Weight - Most Recent: 330 lb 4.039 oz I&O - Last 24 hours: Intake & Output 07/24/19 07/25/19 07/25/19 22:59 06:59 14:59 Intake Total 500 Output Total 800 Balance -300 Lab Results - Last 24 hrs: Laboratory Results - last 24 hr 07/24/19 07/24/19 07/24/19 Range/Units 14:30 14:30 14:30 WBC 8.85 (4.0-11.0) K/uL RBC 4.24 L (4.30-5.90) M/uL Hgb 12.6 (12.0-16.0) g/dL Hct 40.1 (36.0-46.0) % MCV 94.6 (80.0-98.0) fL MCH 29.7 (27.0-32.0) pg MCHC 31.4 (31.0-37.0) g/dL RDW Std Deviation 49.7 (28.0-62.0) fl RDW Coeff of Yan 14 (11.0-15.0) % Plt Count 243 (150-400) K/uL MPV 10.60 (7.40-12.00) fL Neut % (Auto) 63.7 (48.0-80.0) % Lymph % (Auto) 28.1 (16.0-40.0) % [place] % (Auto) 5.5 (0.0-15.0) % Eos % (Auto) 2.4 (0.0-7.0) % Baso % (Auto) 0.3 (0.0-1.5) % Neut # (Auto) 5.6 (1.4-5.7) K/uL Lymph # (Auto) 2.5 H (0.6-2.4) K/uL [place] # (Auto) 0.5 (0.0-0.8) K/uL Eos # (Auto) 0.2 (0.0-0.7) K/uL Baso # (Auto) 0.0 (0.0-0.1) K/uL Nucleated RBC % 0.0 /100WBC Nucleated RBCs # 0 K/uL D-Dimer, Quantitative 0.54 H (0.0-0.50) mg/L FEU Sodium 141 (136-145) mmol/L Potassium 4.0 (3.5-5.1) mmol/L Chloride 107 (98-107) mmol/L Carbon Dioxide 26.6 (21.0-32.0) mmol/L BUN 10 (7.0-18.0) mg/dL Creatinine 0.6 (0.6-1.0) mg/dL Est Cr Clr Drug Dosing 94.63 mL/min Estimated GFR (MDRD) > 60.0 ml/min Glucose 117 H (74-106) mg/dL Calcium 8.9 (8.5-10.1) mg/dL Total Bilirubin 0.3 (0.2-1.0) mg/dL AST 13 L (15-37) IU/L ALT 12 L (14-63) IU/L Alkaline Phosphatase 58 (46-116) U/L Troponin I < 0.050 (0.000-0.056) ng/mL B-Natriuretic Peptide (<100) PG/ML Total Protein 6.7 (6.4-8.2) g/dL Albumin 3.1 L (3.4-5.0) g/dL Globulin 3.6 (2.6-4.0) g/dL Albumin/Globulin Ratio 0.9 (0.9-1.6) 07/24/19 07/24/19 07/25/19 Range/Units 14:30 20:42 02:33 WBC (4.0-11.0) K/uL RBC (4.30-5.90) M/uL Hgb (12.0-16.0) g/dL Hct (36.0-46.0) % MCV (80.0-98.0) fL MCH (27.0-32.0) pg MCHC (31.0-37.0) g/dL RDW Std Deviation (28.0-62.0) fl RDW Coeff of Yan (11.0-15.0) % Plt Count (150-400) K/uL MPV (7.40-12.00) fL Neut % (Auto) (48.0-80.0) % Lymph % (Auto) (16.0-40.0) % [place] % (Auto) (0.0-15.0) % Eos % (Auto) (0.0-7.0) % Baso % (Auto) (0.0-1.5) % Neut # (Auto) (1.4-5.7) K/uL Lymph # (Auto) (0.6-2.4) K/uL [place] # (Auto) (0.0-0.8) K/uL Eos # (Auto) (0.0-0.7) K/uL Baso # (Auto) (0.0-0.1) K/uL Nucleated RBC % /100WBC Nucleated RBCs # K/uL D-Dimer, Quantitative (0.0-0.50) mg/L FEU Sodium (136-145) mmol/L Potassium (3.5-5.1) mmol/L Chloride (98-107) mmol/L Carbon Dioxide (21.0-32.0) mmol/L BUN (7.0-18.0) mg/dL Creatinine (0.6-1.0) mg/dL Est Cr Clr Drug Dosing mL/min Estimated GFR (MDRD) ml/min Glucose (74-106) mg/dL Calcium (8.5-10.1) mg/dL Total Bilirubin (0.2-1.0) mg/dL AST (15-37) IU/L ALT (14-63) IU/L Alkaline Phosphatase (46-116) U/L Troponin I < 0.050 < 0.050 (0.000-0.056) ng/mL B-Natriuretic Peptide 15 (<100) PG/ML Total Protein (6.4-8.2) g/dL Albumin (3.4-5.0) g/dL Globulin (2.6-4.0) g/dL Albumin/Globulin Ratio (0.9-1.6) Med Orders - Current: Current Medications Acetaminophen (Tylenol Extra Strength) 500 mg PO Q4H PRN PRN Reason: Pain Clonazepam (Klonopin) 0.5 mg PO TID [facility] Last Admin: 07/25/19 06:04 Dose: 0.5 mg Escitalopram Oxalate (Lexapro) 20 mg PO DAILY [facility] Last Admin: 07/25/19 08:25 Dose: 20 mg Fludrocortisone Acetate (Florinef) 0.1 mg PO DAILY [facility] Last Admin: 07/25/19 08:26 Dose: 0.1 mg Deercroft Carbonate (Lithobid) 900 mg PO BEDTIME [facility] Morphine Sulfate (Morphine) 2 mg IVPUSH Q4H PRN PRN Reason: Pain Last Admin: 07/25/19 03:16 Dose: 2 mg Vraylar 3 Mg 0 each PO DAILY [facility] Last Admin: 07/25/19 09:09 Dose: 3 each Sodium Chloride (Saline Flush) 10 ml FLUSH ASDIRECTED PRN PRN Reason: Keep Vein Open Last Admin: 07/24/19 14:40 Dose: 10 ml Sodium Chloride (Saline Flush) 2.5 ml FLUSH ASDIRECTED PRN PRN Reason: Keep Vein Open Last Admin: 07/24/19 14:39 Dose: 2.5 ml Sumatriptan Succinate (Imitrex) 50 mg PO ONETIME PRN PRN Reason: MIGRAINE HEADACHE Last Admin: 07/25/19 09:08 Dose: 50 mg Discontinued Medications Aspirin (Aspirin) 324 mg PO ONETIME ONE Stop: 07/24/19 14:35 Last Admin: 07/24/19 14:39 Dose: 324 mg Sodium Chloride (Normal Saline) 1,000 mls @ 125 mls/hr IV STAT ONE Stop: 07/24/19 23:07 Last Admin: 07/24/19 15:20 Dose: 125 mls/hr Iopamidol (Isovue Multipack-370 (76%)) 70 ml IVPUSH ONETIME ONE Stop: 07/24/19 15:47 Last Admin: 07/24/19 15:46 Dose: 70 ml Morphine Sulfate (Morphine) 2 mg IVPUSH ONETIME ONE Stop: 07/24/19 14:44 Last Admin: 07/24/19 14:48 Dose: 2 mg Nitroglycerin (Nitro-Bid 2%) 1 gm TOP ONETIME ONE Stop: 07/24/19 16:18 Last Admin: 07/24/19 16:20 Dose: 1 gm
[2019-07-25] MEDS ORDERED: Lithium Carbonate 300 MG Tab.ER PO SCH (21:00)
== END 2019-07-25 11:00 | disposition home or self-care (01) ==
LOC: MW.ED 14:29 → MW.MS 16:15
PROVIDERS: ADMIT Internal Medicine; ATTEND Internal Medicine
DX: R07.2 Precordial pain (principal); F31.9 Bipolar disorder, unspecified; F41.9 Anxiety disorder, unspecified; I95.9 Hypotension, unspecified; E66.9 Obesity, unspecified; Z88.8 Allergy status to other drugs, medicaments and biological substances; Z87.891 Personal history of nicotine dependence; Z86.79 Personal history of other diseases of the circulatory system; Z68.44 Body mass index [BMI] 60.0-69.9, adult
CPT/HCPCS: 36415; 71045; 71275; 80053; 83880; 84484; 85025; 85379; 93005; 96361; 96374; 99285; A9270; J2270; J7030; Q9967; 96376; 99284; G0378